=== PATIENT | male | born 1970 | race Caucasian/White ===

== ENCOUNTER 2023-02-05 18:59 | Emergency (ER) | payer SELFPAY ==
[2023-02-05] MEDS ORDERED: Sodium Chloride 0.9% 2.5 ML Syringe FLUSH PRN (19:07)
[2023-02-05] MEDS ORDERED: Sodium Chloride 0.9% 10 ML Syringe FLUSH PRN (19:07)
[2023-02-05] MEDS ORDERED: Aspirin 81 MG Tab.Chew PO ONE (19:07)
[2023-02-05 19:24] LABS: BASOPHILS PERCENT AUTO 0.3 % (0.0-1.5); EOSINOPHILS ABSOLUTE AUTO 0.4 K/uL (0.0-0.7); EOSINOPHILS PERCENT AUTO 4.6 % (0.0-7.0); HEMATOCRIT 47.2 % (38.0-50.0); HEMOGLOBIN 16.4 g/dL (13.0-17.0); LYMPHOCYTES ABSOLUTE AUTO 3.1 K/uL (0.6-2.4); LYMPHOCYTES PERCENT AUTO 40.8 % (16.0-40.0); MEAN CORPUSCULAR HEMOGLOBIN 30.3 pg (27.0-32.0); MEAN CORPUSCULAR HGB CONC 34.7 g/dL (31.0-37.0); MEAN CORPUSCULAR VOLUME 87.1 fL (80.0-98.0); MONOCYTES ABSOLUTE AUTO 0.9 K/uL (0.0-0.8); MONOCYTES PERCENT AUTO 11.1 % (0.0-15.0); NEUTROPHILS ABSOLUTE AUTO 3.3 K/uL (1.4-5.7); NEUTROPHILS PERCENT AUTO 43.2 % (48.0-80.0); PLATELET COUNT,PLT 178 K/uL (150-400); RED BLOOD CELL COUNT 5.42 M/uL (4.50-5.90); WHITE BLOOD CELL COUNT,WBC 7.63 K/uL (4.0-11.0)
[2023-02-05 19:55] LABS: INR 1.16 (0.86-1.11); PTT,PARTIAL THROMBOPLSTIN TIME 27.9 SEC (23.9-30.7)
[2023-02-05 20:10] LABS: A/G RATIO 1.1 (0.9-1.6); ALBUMIN 3.7 g/dL (3.4-5.0); BILIRUBIN TOTAL 0.4 mg/dL (0.2-1.0); CALCIUM 8.6 mg/dL (8.5-10.1); CREATININE 1.3 mg/dL (0.8-1.3); EST CRCL DRUG DOSING (CG) 67.98 mL/min; POTASSIUM,K 4.1 mmol/L (3.5-5.1)
[2023-02-05] MEDS ORDERED: Iopamidol 755 MG/ML 500 ML Multipack Bottle IVPUSH ONE (20:29)
== END 2023-02-05 22:41 | disposition home or self-care (01) ==
LOC: MW.ED 18:59
DX: R07.9 Chest pain, unspecified (principal); E86.0 Dehydration
CPT/HCPCS: 36415; 71045; 71275; 80053; 83880; 84484; 85025; 85610; 85730; 99285; A9270; J3490; Q9967; 93005; 93010; 99284